=== PATIENT | female | born 1990 | race Caucasian/White ===

== ENCOUNTER 2016-04-14 17:01 | Emergency (ER) | payer MEDICAID ==
[2016-04-14] MEDS ORDERED: IBUPROFEN 600 MG TABLET PO STA (18:31)
[2016-04-14] MEDS ORDERED: HYDROcod/ACETAM 5/325 MG TABLET PO STA (18:31)
[2016-04-14] MEDS ORDERED: HYDROcod/ACETAM 5/325 MG TABLET ONE (18:35)
[2016-04-14] MEDS ORDERED: IBUPROFEN 600 MG TABLET PO ONE (18:35)
[2016-04-14] MEDS ORDERED: HYDROcod/ACET 5/325 Prepack 6 PO ONE ×2 (20:09→20:15)
== END 2016-04-14 20:26 | disposition home or self-care (01) ==
DX: R10.32 Left lower quadrant pain (principal); N83.202 Unspecified ovarian cyst, left side; F17.200 Nicotine dependence, unspecified, uncomplicated
CPT/HCPCS: 76830; 76856; 81003; 81025; 93976; 99283; 99284; A9270

== ENCOUNTER 2016-08-25 11:13 | Emergency (ER) | payer MEDICAID ==
[2016-08-25 11:39] VITALS: BP 130/75
--- NOTE | 2016-08-25 12:34 | ED Physician Documentation ---
PD HPI UPPER EXT INJURY - Stated complaint Stated Complaint: HAND INJURY - Chief complaint Chief Complaint: General - History obtained from History obtained from: Patient, Family - History of Present Illness Location: Right, Finger (thumb) Type of injury: Crush (in a car door.) Where injury occurred: Home Timing - onset: Today Timing - duration: Hours Timing - details: Abrupt onset, Still present Improved by: Rest, Immobilization Worsened by: Moving, Palpating Associated symptoms: Swelling. No: Weakness, Numbness, Tingling Contributing factors: No: Anticoagulated Similar symptoms before: Has not had sx before Recently seen: Not recently seen - Additonal information Additional information: 26 y/o female closed her thumb in the car door and has swelling pain and discoloration. 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 HEENT: Myringotomy (tubes) - Present Medications Home Medications: Ambulatory Orders Medication Instructions Recorded Confirmed HYDROcod/ACETAM 5/325 [[place] 5/325] 1 - 2 ea PO Q6H PRN #15 tablet 08/25/16 - Allergies Allergies/Adverse Reactions: Allergies Allergy/AdvReac Type Severity Reaction Status Date / Time amoxicillin trihydrate * Allergy unknown Verified 08/25/16 11:23 [From Augmentin] cefaclor [From Ceclor] Allergy unknown Verified 08/25/16 11:23 cefixime [From Suprax] Allergy Rash Verified 08/25/16 11:23 latex Allergy Itching Verified 08/25/16 11:23 morphine Allergy Hives Verified 08/25/16 11:23 naproxen sodium * Allergy Rash Verified 08/25/16 11:23 [From Aleve] Penicillins Allergy unknown Verified 08/25/16 11:23 potassium clavulanate * Allergy unknown Verified 08/25/16 11:23 [From Augmentin] - Social History Does the pt smoke?: Yes Smoking Status: Current every day smoker Does the pt drink ETOH?: Yes Does the pt have substance abuse?: Yes Substance Use and Type: Marijuana - Immunizations Immunizations are current?: Yes - POLST Patient has POLST: No PD ED PE NORMAL - Vitals Vital signs reviewed: Yes (normal ) - General General: Well developed/nourished, Other (appears to be in pain with hand cloth folder tone and flat affect. ) - HEENT HEENT: Atraumatic, PERRL, EOMI - Neck Neck: Supple, no meningeal sign - Respiratory Respiratory: No respiratory distress - Back Back: No CVA TTP - Derm Derm: Normal color, Warm and dry, No rash - Extremities Extremities: Other (over the right thumb is a proximal subungal hematoma. The DIP joint movement is with pain and distal n/v is intact. ) - Neuro Neuro: No motor deficit, No sensory deficit - Psych Psych: Normal mood, Normal affect Results - Vitals Vitals: Vital Signs - 24 hr 08/25/16 11:21 Temperature 36.2 C L Heart Rate 61 Respiratory 16 Rate Blood Pressure 130/75 O2 Saturation 100 Oxygen O2 Source Room air - Rads (name of study) thumb R Radiology: Prelim report reviewed (impression: No fracture), EMP read indepedently, See rad report PD MEDICAL DECISION MAKING - ED course Complexity details: reviewed results, re-evaluated patient, considered differential, d/w patient, d/w family ED course: 26 y/o female with a subungal hematoma without fracture appears to be in pain. Departure - Departure Disposition: 01 Home, Self Care Clinical Impression: Subungual hematoma of right thumb Qualifiers: Encounter type: initial encounter Qualified Code(s): S60.111A - Contusion of right thumb with damage to nail, initial encounter Condition: Stable Instructions: ED Hematoma Subungual Follow-Up: Lilli Matias ARNP [Primary Care Provider] - Prescriptions: HYDROcod/ACETAM 5/325 [[place] 5/325] 1 - 2 ea PO Q6H PRN #15 tablet PRN Reason: Pain
--- NOTE | 2016-08-25 12:35 | XRAY Preliminary Report ---
Exam: XR Finger(s) RT IMPRESSION: No fracture. [facility] SITE ID: [id number]
--- NOTE | 2016-08-25 12:37 | XRAY Report ---
EXAM: RIGHT FIRST DIGIT RADIOGRAPHY EXAM DATE: 08/25/2016 12:05 PM. CLINICAL HISTORY: Car door vs thumb. Pain. COMPARISON: None. TECHNIQUE: 3 views. FINDINGS: Bones: Normal. No fracture or bone lesion. Joints: Normal. No subluxations. Soft Tissues: Normal. No soft tissue swelling. IMPRESSION: No fracture. [facility] Referring Provider Line: [phone] SITE ID: [id number]
== END 2016-08-25 12:40 | disposition home or self-care (01) ==
LOC: ED 11:13
DX: S60.111A Contusion of right thumb with damage to nail, initial encounter (principal); W23.1XXA Caught, crushed, jammed, or pinched between stationary objects, initial encounter; J45.909 Unspecified asthma, uncomplicated; F17.200 Nicotine dependence, unspecified, uncomplicated
CPT/HCPCS: 73140; 99283

== ENCOUNTER 2016-10-11 21:30 | Emergency (ER) | payer MEDICAID ==
[2016-10-11 21:46] VITALS: BP 129/77
[2016-10-11] MEDS ORDERED: diphenhydrAMINE 25 MG CAPSULE PO STA (22:14)
[2016-10-11] MEDS ORDERED: CLINDAMYCIN 150 MG CAPSULE PO STA (22:14)
[2016-10-11] MEDS ORDERED: predniSONE 20 MG TABLET PO STA (22:14)
--- NOTE | 2016-10-11 22:19 | ED Physician Documentation ---
History of Present Illness - Stated complaint Stated Complaint: R ANKLE PAIN - Chief complaint Chief Complaint: General - History obtained from History obtained from: Patient - History of Present Illness Timing: Other (Bee sting on the right ankle while working at home about 48 hours ago with increasing redness and swelling there but no fevers.) Review of Systems Constitutional: denies: Fever, Chills Respiratory: denies: Dyspnea, Cough : denies: Now EGA PD PAST MEDICAL HISTORY - Past Medical History Past Medical History: Yes Respiratory: Asthma, Pneumonia - Past Surgical History Past Surgical History: Yes 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, 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 HEENT: Myringotomy (tubes) - Present Medications Home Medications: Ambulatory Orders Medication Instructions Recorded Confirmed HYDROcod/ACETAM 5/325 [[place] 5/325] 1 - 2 ea PO Q6H PRN #15 tablet 08/25/16 Clindamycin [Cleocin] 300 mg PO Q6H 5 Days 10/11/16 predniSONE [Deltasone] 60 mg PO DAILY 5 Days 10/11/16 - Allergies Allergies/Adverse Reactions: Allergies Allergy/AdvReac Type Severity Reaction Status Date / Time amoxicillin trihydrate * Allergy unknown Verified 10/11/16 21:46 [From Augmentin] cefaclor [From Ceclor] Allergy unknown Verified 10/11/16 21:46 cefixime [From Suprax] Allergy Rash Verified 10/11/16 21:46 latex Allergy Itching Verified 10/11/16 21:46 morphine Allergy Hives Verified 10/11/16 21:46 Penicillins Allergy unknown Verified 10/11/16 21:46 potassium clavulanate * Allergy unknown Verified 10/11/16 21:46 [From Augmentin] - Social History Does the pt smoke?: Yes Smoking Status: Current every day smoker Does the pt drink ETOH?: Yes Does the pt have substance abuse?: Yes Substance Use and Type: Marijuana - Immunizations Immunizations are current?: Yes - POLST Patient has POLST: No PD ED PE NORMAL - Vitals Vital signs reviewed: Yes - General General: Alert and oriented X 3, No acute distress - Extremities Extremities: Other (There is an area of cellulitis versus bee sting measuring about 3-4 cm around on the anterior right ankle that is warm) - Neuro Neuro: Alert and oriented X 3, Normal speech - Psych Psych: Normal mood, Normal affect Results - Vitals Vitals: Vital Signs - 24 hr 10/11/16 21:41 Temperature 36.5 C Heart Rate 77 Respiratory 17 Rate Blood Pressure 129/77 O2 Saturation 99 Oxygen O2 Source Room air PD MEDICAL DECISION MAKING - ED course ED course: Could be simple bee sting reaction with histamine release etc., also could be infection. Departure - Departure Disposition: 01 Home, Self Care Clinical Impression: Sting, bee Qualifiers: Encounter type: initial encounter Injury intent: accidental or unintentional Qualified Code(s): T63.441A - Toxic effect of venom of bees, accidental ( unintentional), initial encounter Condition: Good Record reviewed to determine appropriate education?: Yes Instructions: ED Sting Bite Insect Infec Prescriptions: Clindamycin [Cleocin] 300 mg PO Q6H 5 Days predniSONE [Deltasone] 60 mg PO DAILY 5 Days Comments: Call your doctor to arrange a follow-up appointment, make the next available appointment. In the interim, return anytime if worse or if new symptoms develop.
[2016-10-11] MEDS ORDERED: predniSONE 20 MG TABLET ONE (22:26)
[2016-10-11] MEDS ORDERED: diphenhydrAMINE 25 MG CAPSULE PO ONE (22:26)
[2016-10-11] MEDS ORDERED: CLINDAMYCIN 150 MG CAPSULE PO ONE (22:26)
== END 2016-10-11 22:33 | disposition home or self-care (01) ==
LOC: ED 21:30
DX: T63.441A Toxic effect of venom of bees, accidental (unintentional), initial encounter (principal); Y92.009 Unspecified place in unspecified non-institutional (private) residence as the place of occurrence of the external cause; F17.200 Nicotine dependence, unspecified, uncomplicated
CPT/HCPCS: 99283; A9270; J7512

== ENCOUNTER 2016-11-06 20:41 | Emergency (ER) | payer MEDICAID ==
[2016-11-06] MEDS ORDERED: IPRATROPIUM/ALBUTEROL 3 ML NEB INH STA (21:05)
[2016-11-06] MEDS ORDERED: IPRATROPIUM/ALBUTEROL 3 ML NEB INH ONE ×2 (21:21→21:52)
--- NOTE | 2016-11-06 22:19 | XRAY Preliminary Report ---
Exam: XR Chest 2 View PA/LAT IMPRESSION: 1. No acute abnormality seen in the chest. [facility] SITE ID: [id number]
--- NOTE | 2016-11-06 22:22 | XRAY Report ---
EXAM: CHEST RADIOGRAPHY EXAM DATE: 11/06/2016 09:57 PM. CLINICAL HISTORY: Productive cough and shortness of breath. COMPARISON: 03/12/2008. TECHNIQUE: 2 views. FINDINGS: Lungs/Pleura: No focal opacities evident. No pleural effusion. No pneumothorax. Normal volumes. Mediastinum: Heart and mediastinal contours are unremarkable. Other: None. IMPRESSION: 1. No acute abnormality seen in the chest. [facility] Referring Provider Line: [phone] SITE ID: [id number]
--- NOTE | 2016-11-06 23:01 | ED Physician Documentation ---
PD HPI URI - Stated complaint Stated Complaint: DIFF BREATHING,CHEST PRESSURE - Chief complaint Chief Complaint: Resp - History obtained from History obtained from: Patient, Friend - History of Present Illness Timing - onset: How many days ago (2) Timing details: Gradual onset, Still present Associated symptoms: Dry cough, Productive cough. No: Fever, Chills, Sore throat Contributing factors: No: Sick contact Improves by: Rest Similar symptoms before: No diagnosis Recently seen: Not recently seen - Additional information Additional information: Patient is a 26 year old female with a history of asthma who is presenting to the emergency department for cough and shortness of breath. Patient states that the symptoms have been going on for the last few days. patient states that sometimes the cough is dry and other times the cough is productive. patient states that she has a history of asthma but her medications have all . Review of Systems Constitutional: denies: Fever Eyes: denies: Decreased vision, Photophobia Ears: denies: Ear pain, Drainage/discharge Nose: reports: Rhinorrhea / runny nose, Congestion, Sinus pressure / pain Throat: denies: Sore throat Cardiac: denies: Chest pain / pressure, Calf pain Respiratory: reports: Cough. 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 HEENT: Myringotomy (tubes) - Present Medications Home Medications: Ambulatory Orders Medication Instructions Recorded Confirmed HYDROcod/ACETAM 5/325 [[place] 5/325] 1 - 2 ea PO Q6H PRN #15 tablet 08/25/16 Clindamycin [Cleocin] 300 mg PO Q6H 5 Days 10/11/16 predniSONE [Deltasone] 60 mg PO DAILY 5 Days 10/11/16 Albuterol Sulfate [Proventil Hfa 1 - 2 puffs INH Q4H PRN #1 inhaler 11/06/16 Inhaler] Benzonatate [Tessalon Perle] 100 mg PO TID #20 capsule 11/06/16 - Allergies Allergies/Adverse Reactions: Allergies Allergy/AdvReac Type Severity Reaction Status Date / Time amoxicillin trihydrate * Allergy unknown Verified 10/11/16 21:46 [From Augmentin] cefaclor [From Ceclor] Allergy unknown Verified 10/11/16 21:46 cefixime [From Suprax] Allergy Rash Verified 10/11/16 21:46 latex Allergy Itching Verified 10/11/16 21:46 morphine Allergy Hives Verified 10/11/16 21:46 Penicillins Allergy unknown Verified 10/11/16 21:46 potassium clavulanate * Allergy unknown Verified 10/11/16 21:46 [From Augmentin] - Social History Does the pt smoke?: Yes Smoking Status: Current every day smoker Does the pt drink ETOH?: Yes Does the pt have substance abuse?: Yes - Immunizations Immunizations are current?: Yes - POLST Patient has POLST: No PD ED PE NORMAL - Vitals Vital signs reviewed: Yes - General General: Alert and oriented X 3, No acute distress - HEENT HEENT: Atraumatic, PERRL, Ears normal, Moist mucous membranes, Pharynx benign, Dentition benign - Neck Neck: Supple, no meningeal sign, No JVD - Cardiac Cardiac: RRR, No murmur - Respiratory Respiratory: No respiratory distress - Abdomen Abdomen: Soft, Non tender, Non distended - Derm Derm: Normal color, Warm and dry, No rash - Extremities Extremities: No deformity, No edema - Neuro Neuro: Alert and oriented X 3, No motor deficit, No sensory deficit, Normal speech - Psych Psych: Normal mood PD ED PE EXPANDED - HEENT HEENT: Nasal congestion, Rhinorrhea, Pharynx normal Results - Vitals Vitals: Vital Signs - 24 hr 11/06/16 11/06/16 11/06/16 20:48 21:15 23:14 Temperature 36.2 C L Heart Rate 93 90 86 Respiratory 19 18 Rate Blood Pressure 116/81 H 117/73 O2 Saturation 98 99 Oxygen O2 Source Room air - Rads (name of study) chest x-ray Radiology: Final report received (no acute disease process) PD MEDICAL DECISION MAKING - ED course Complexity details: reviewed old records, reviewed results, re-evaluated patient , considered differential, d/w patient, d/w family ED course: Patient was seen and examined at bedside. breathing treatments were ordered as well as imaging. patient responded well to the nebulizer treatment. When patient returned from imaging the results were reviewed. there was no acute infection appreciated. Patient's symptoms were likely viral in nature. Patient required no further work up and was stable for discharge with outpatient follow up. Departure - Departure Disposition: 01 Home, Self Care Clinical Impression: Upper respiratory tract infection Condition: Good Instructions: ED Viral Syndrome Follow-Up: Lilli Matias ARNP [Primary Care Provider] - Within 1 week Prescriptions: Albuterol Sulfate [Proventil Hfa Inhaler] 1 - 2 puffs INH Q4H PRN #1 inhaler PRN Reason: Shortness Of Air/Wheezing Benzonatate [Tessalon Perle] 100 mg PO TID #20 capsule Comments: Your diagnostics were within normal limits. your symptoms are likely viral in nature. You should take the tessalon perles and over the counter cold and flu medicine. You should make sure you get plenty of rest and drink plenty of fluids. You should follow up with your pmd if your symptoms if your symptoms persist. Discharge Date/Time: 11/06/16 23:14
[2016-11-06 23:15] VITALS: BP 117/73
== END 2016-11-06 23:14 | disposition home or self-care (01) ==
LOC: ED 20:41
DX: J06.9 Acute upper respiratory infection, unspecified (principal); F17.200 Nicotine dependence, unspecified, uncomplicated
CPT/HCPCS: 71020; 94640; 99283; J7620

== ENCOUNTER 2016-11-10 16:59 | Outpatient (CLI) | payer MEDICAID ==
--- NOTE | 2016-11-11 08:45 | Ultrasound Report ---
PELVIC ULTRASOUND: 11/10/2016 CLINICAL INDICATION: History of ovarian cyst. COMPARISON: 04/14/2016 TECHNIQUE: Transabdominal pelvic ultrasound performed for global evaluation. Transvaginal pelvic ultrasound performed for detailed evaluation. Real-time scanning performed and static images obtained. FINDINGS: The uterus is anteverted, measuring 9.6 x 5.0 x 4.0 cm. The endometrial echo complex measures 6 mm. The ovaries are now normal, with the right measuring 3.0 x 1.7 x 1.6 cm and the left measuring 3.2 x 2.0 x 1.3 cm. Trace free fluid is present. IMPRESSION: RESOLUTION OF PREVIOUSLY SEEN LEFT OVARIAN CYST. JOB #: [id number] EXT JOB #: [id number] GUY
== END 2016-11-10 17:00 | disposition home or self-care (01) ==
LOC: DI 16:59
PROVIDERS: ATTEND Nurse Practitioner Gerontology
DX: Z87.42 Personal history of other diseases of the female genital tract (principal)
CPT/HCPCS: 76830; 76856

== ENCOUNTER 2016-12-01 10:39 | Emergency (ER) | payer MEDICAID ==
[2016-12-01] MEDS ORDERED: DEXAMETHASONE 10 MG/ML VIAL PO STA (11:48)
--- NOTE | 2016-12-01 11:50 | ED Physician Documentation ---
PD HPI HEENT - Stated complaint Stated Complaint: SORE THROAT/CONGESTION - Chief complaint Chief Complaint: Heent - History obtained from History obtained from: Patient - History of Present Illness Timing - onset: How many weeks ago (1) Timing - duration: Weeks (1) Timing - details: Gradual onset, Still present, Waxing and waning Location: Sinuses, Nose, Throat Improves: Medication Associated symptoms: Congestion, Rhinorrhea, Cough, Other (wheezing) Similar symptoms before: Diagnosis (OM) Recently seen: Not recently seen - Additional information Additional information: 26-year-old female with a history of asthma and prior otitis media has developed a cough and congestion and this is been present over the past week. She has had a fever on and off she has had her in symptoms come and go and today she has sore throat as well as fever cough congestion and wheezing. 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 HEENT: Myringotomy (tubes) - Present Medications Home Medications: Ambulatory Orders Medication Instructions Recorded Confirmed Azithromycin [Zithromax] 250 mg PO DAILY #6 tablet 12/01/16 - Allergies Allergies/Adverse Reactions: Allergies Allergy/AdvReac Type Severity Reaction Status Date / Time amoxicillin trihydrate * Allergy unknown Verified 10/11/16 21:46 [From Augmentin] cefaclor [From Ceclor] Allergy unknown Verified 10/11/16 21:46 cefixime [From Suprax] Allergy Rash Verified 10/11/16 21:46 latex Allergy Itching Verified 10/11/16 21:46 morphine Allergy Hives Verified 10/11/16 21:46 Penicillins Allergy unknown Verified 10/11/16 21:46 potassium clavulanate * Allergy unknown Verified 10/11/16 21:46 [From Augmentin] - Social History Does the pt smoke?: Yes Smoking Status: Current every day smoker Does the pt drink ETOH?: Yes Does the pt have substance abuse?: Yes - Immunizations Immunizations are current?: Yes - POLST Patient has POLST: No PD ED PE NORMAL - Vitals Vital signs reviewed: Yes (normal ) - General General: No acute distress, Well developed/nourished - HEENT HEENT: Atraumatic, PERRL, EOMI, Pharynx benign, Other (both TM's are inflammed with indistinct landmarks the left worse than the right. ) - Neck Neck: Supple, no meningeal sign, No bony TTP - Cardiac Cardiac: RRR, No murmur - Respiratory Respiratory: No respiratory distress, Other (Diminished breath sounds with scattered wheezes bilaterally.) - Abdomen Abdomen: Soft, Non tender - Back Back: No CVA TTP, No spinal TTP - Derm Derm: Normal color, Warm and dry, No rash - Extremities Extremities: No deformity, No edema - Neuro Neuro: No motor deficit, No sensory deficit, Normal speech - Psych Psych: Normal mood, Normal affect Results - Vitals Vitals: Vital Signs - 24 hr 12/01/16 10:48 Temperature 36.2 C L Heart Rate 82 Respiratory 18 Rate Blood Pressure 115/78 O2 Saturation 97 Oxygen O2 Source Room air PD MEDICAL DECISION MAKING - ED course Complexity details: considered differential, d/w patient ED course: 26-year-old female with history ofOtitis has developed otitis and she has an exacerbation of her asthma as well. She is given a dose of dexamethasone here in the emergency department and we will put her on her on a Z-Yadiel. Departure - Departure Disposition: 01 Home, Self Care Clinical Impression: Otitis media Qualifiers: Otitis media type: suppurative Chronicity: acute Laterality: bilateral Recurrence: not specified as recurrent Spontaneous tympanic membrane rupture: without spontaneous rupture Qualified Code(s): H66.003 - Acute suppurative otitis media without spontaneous rupture of ear drum, bilateral Condition: Stable Instructions: ED Otitis Media Acute Adult Follow-Up: Lilli Matias [employer]EL [employer]INE I [employer]IPE [employer] [Primary Care Provider] - Prescriptions: Azithromycin [Zithromax] 250 mg PO DAILY #6 tablet
[2016-12-01] MEDS ORDERED: DEXAMETHASONE 10 MG/ML VIAL ONE (11:54)
[2016-12-01] MEDS ORDERED: CHERRY SYRUP 10 ML UDC PO ONE (11:54)
[2016-12-01 11:55] VITALS: BP 124/77
== END 2016-12-01 11:54 | disposition home or self-care (01) ==
LOC: ED 10:39
DX: H66.003 Acute suppurative otitis media without spontaneous rupture of ear drum, bilateral (principal); J45.909 Unspecified asthma, uncomplicated; F17.200 Nicotine dependence, unspecified, uncomplicated
CPT/HCPCS: 99283; A9270

== ENCOUNTER 2017-03-18 13:12 | Outpatient (CLI) | payer MEDICAID ==
--- NOTE | 2017-03-18 15:21 | MRI Report ---
EXAM: MRI THORACIC SPINE WITHOUT CONTRAST EXAM DATE: 03/18/2017 02:16 PM. CLINICAL HISTORY: Chronic back pain. Mid thoracic and lower back pain. Arthritis. COMPARISONS: Chest radiography 11/06/2016. TECHNIQUE: Multiplanar, multisequence T1-weighted and fluid-sensitive sequences of the thoracic spine from C7 to L1 without contrast. Other: None. FINDINGS: Spinal Cord: No signal abnormality in the visualized spinal cord. Alignment: Normal alignment. No spondylolisthesis. Bone Marrow: No gross fractures or bone lesion. No bone marrow edema. Disk Levels/Facets: C7-T1: Unremarkable. T1-T2: Unremarkable. T2-T3: Unremarkable. T3-T4: Unremarkable. T4-T5: Unremarkable. T5-T6: Unremarkable. T6-T7: Tiny right paracentral disk protrusion. No significant stenosis. T7-T8: Unremarkable. T8-T9: Unremarkable. T9-T10: Unremarkable. T10-T11: Unremarkable. T11-T12: Unremarkable. T12-L1: Unremarkable. Musculature: Normal. No edema or fatty atrophy. Other: The visualized lungs, mediastinum, and abdominal cavity are unremarkable. IMPRESSION: 1. Tiny disk protrusion at the T6-T7 level without significant associated stenosis. 2. Otherwise normal thoracic spine MRI. [facility] Referring Provider Line: [phone] SITE ID: [id number]
--- NOTE | 2017-03-18 15:24 | MRI Report ---
EXAM: MRI LUMBAR SPINE WITHOUT CONTRAST EXAM DATE: 03/18/2017 02:21 PM. CLINICAL HISTORY: CHRONIC LOW BACK PAIN. COMPARISON: Radiograph 03/02/2007. TECHNIQUE: Multiplanar, multisequence T1-weighted and fluid-sensitive sequences of the lumbar spine f rom T12 to S1 without contrast. Other: None. FINDINGS: Spinal Cord: The conus terminates at L2. The conus medullaris and cauda equina are unremarkable. Alignment: No scoliosis or spondylolisthesis. Bone Marrow: Five [id number] lumbar vertebral bodies are assumed. No gross fractures or bone les ions. No bone marrow edema. Disk Levels/Facets: T12-L1: Unremarkable. L1-L2: Unremarkable. L2-L3: Unremarkable. L3-L4: Unremarkable. L4-L5: Unremarkable. L5-S1: Unremarkable. Musculature: Normal. No edema or fatty atrophy. Other: The partially visualized retroperitoneum is unremarkable. IMPRESSION: Unremarkable lumbar spine MRI. Comment: The following findings are so common in adults without low back pain that while we report th eir presence, they must be interpreted with caution and in the context of the clinical situation. (Re paulo Thomas et al, Spine 2001) Prevalence of findings in patients without low back pain: Disk degeneration (any evidence): 92% Disk desiccation/T2 signal loss: 83% Disk height loss: 56% Disk bulge: 64% Disk protrusion: 32% Annular tear/high intensity zone: 38% [facility] Referring Provider Line: [phone] SITE ID: [id number]
== END 2017-03-18 13:13 | disposition home or self-care (01) ==
LOC: DI 13:12
PROVIDERS: ATTEND Nurse Practitioner Gerontology
DX: M54.5 Low back pain (principal); M54.6 Pain in thoracic spine; G89.29 Other chronic pain; I13.0 Hypertensive heart and chronic kidney disease with heart failure and stage 1 through stage 4 chronic kidney disease, or unspecified chronic kidney disease; E11.22 Type 2 diabetes mellitus with diabetic chronic kidney disease; N18.9 Chronic kidney disease, unspecified; I50.9 Heart failure, unspecified; C90.00 Multiple myeloma not having achieved remission
CPT/HCPCS: 72146; 72148

== ENCOUNTER 2017-04-04 11:04 | Outpatient (CLI) | payer MEDICAID ==
[2017-04-04 19:37] LABS: EOSINOPHILS % (AUTO) 1.4 %; HGB - HEMOGLOBIN 14.6 g/dL (12.0-16.0); LYMPHOCYTES % (AUTO) 19.2 %; MEAN CORPUSCULAR HEMOGLOBIN 30.5 pg (27.0-31.0); MEAN CORPUSCULAR HGB CONC 32.2 g/dL (32.0-36.0); MEAN CORPUSCULAR VOLUME 94.7 fL (81.0-99.0); MEAN PLATELET VOLUME 9.4 fL (7.9-10.8); MONOCYTES % (AUTO) 5.8 %; NEUTROPHILS % (AUTO) 73.6 %; PLT - PLATELET COUNT 218 10^3/uL (130-450); RED CELL DISTRIBUTION WIDTH 14.3 % (12.0-15.0); WHITE BLOOD COUNT 9.2 x10^3/uL (4.8-10.8)
[2017-04-04 19:45] LABS: ABNORMAL LYMPHS % (MANUAL) 0 %
[2017-04-04 19:50] LABS: ALBUMIN 4.3 g/dL (3.2-5.5); ALBUMIN/GLOBULIN RATIO 1.8 (1.0-2.2); ALKALINE PHOSPHATASE 46 IU/L (42-121); ALT ALANINE AMINOTRANSFERASE 21 IU/L (10-60); AST ASPARTATE AMINOTRANSFERASE 21 IU/L (10-42); BILIRUBIN,TOTAL 0.5 mg/dL (0.2-1.0); BUN - BLOOD UREA NITROGEN 17 mg/dL (6-20); CALCIUM 9.1 mg/dL (8.5-10.3); CARBON DIOXIDE - CO2 24 mmol/L (21-32); CHLORIDE 105 mmol/L (101-111); CREATININE 0.8 mg/dL (0.4-1.0); GFR - MDRD 86 (>89); GLUCOSE 92 mg/dL (70-100); SODIUM 137 mmol/L (135-145); TOTAL PROTEIN 6.7 g/dL (6.7-8.2)
[2017-04-04 19:57] LABS: BAND NEUTROPHILS % (MANUAL) 2 %; LYMPHOCYTES # (MANUAL) 1.3 10^3/uL (1.5-3.5); LYMPHOCYTES % (MANUAL) 14 %; MONOCYTES # (MANUAL) 0.3 10^3/uL (0.0-1.0); NEUTROPHILS # (MANUAL) 7.6 10^3/uL (1.5-6.6); NEUTROPHILS % (MANUAL) 81 %; PLATELET ESTIMATE, MANUAL NORMAL (130-450,000) (NORMAL); PLATELET MORPHOLOGY NORMAL APPEARANCE (NORMAL); RBC MORPHOLOGY (MULTIPLE) NORMAL APPEARANCE (NORMAL)
[2017-04-04 19:58] LABS: DIFFERENTIAL COMMENT MANUAL DIFFERENTIAL
[2017-04-04 20:00] LABS: CRP - C-REACTIVE PROTEIN < 1.0 mg/dL (0-1.0); RHEUMATOID FACTOR NEGATIVE (Negative)
== END 2017-04-04 11:05 | disposition home or self-care (01) ==
LOC: LAB.N 11:04
PROVIDERS: ATTEND Nurse Practitioner Gerontology
DX: Z13.9 Encounter for screening, unspecified (principal); G89.29 Other chronic pain
CPT/HCPCS: 36415; 80053; 84443; 84550; 85025; 85651; 86038; 86140; 86430

== ENCOUNTER 2017-04-09 21:11 | Emergency (ER) | payer MEDICAID ==
[2017-04-09] MEDS ORDERED: IPRATROPIUM/ALBUTEROL 3 ML NEB INH STA (21:19)
--- NOTE | 2017-04-09 21:20 | ED Physician Documentation ---
PD HPI DYSPNEA - Stated complaint Stated Complaint: COUGH - Chief complaint Chief Complaint: Resp - History obtained from History obtained from: Patient - History of Present Illness Timing - onset: Other (26-year-old woman with history of tobacco abuse and asthma had has a cough for 3 weeks which is getting better and then got worse again about 3 days ago with shortness of breath but no fevers.) Review of Systems Constitutional: denies: Fever, Chills Nose: reports: Rhinorrhea / runny nose, Congestion Throat: denies: Sore throat Cardiac: denies: Chest pain / pressure Respiratory: reports: Dyspnea, Cough PD PAST MEDICAL HISTORY - Past Medical History Respiratory: Asthma, Pneumonia - Past Surgical History Past Surgical History: Yes 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, 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 HEENT: Myringotomy (tubes) - Present Medications Home Medications: Ambulatory Orders Medication Instructions Recorded Confirmed Albuterol Sulfate [Proventil Hfa 1 - 2 puffs IH Q4H PRN #1 04/09/17 Inhaler] [email or web address].ad Ipratropium/Albuterol [Duoneb] 3 ml INH Q6H PRN #1 unit 04/09/17 Nebulizer and Compressor [Home 1 each MC ONCE #1 each 04/09/17 Nebulizer Plus Sidestream] guaiFENesin/CODEINE [Robitussin AC] 5 - 10 ml PO Q6H PRN #120 ml 04/09/17 predniSONE [Deltasone] 20 mg PO [id number] #21 tab 04/09/17 - Allergies Allergies/Adverse Reactions: Allergies Allergy/AdvReac Type Severity Reaction Status Date / Time amoxicillin trihydrate * Allergy unknown Verified 04/09/17 21:17 [From Augmentin] cefaclor [From Ceclor] Allergy unknown Verified 04/09/17 21:17 cefixime [From Suprax] Allergy Rash Verified 04/09/17 21:17 latex Allergy Itching Verified 04/09/17 21:17 morphine Allergy Hives Verified 04/09/17 21:17 Penicillins Allergy unknown Verified 04/09/17 21:17 potassium clavulanate * Allergy unknown Verified 04/09/17 21:17 [From Augmentin] - Social History Does the pt smoke?: Yes Smoking Status: Current every day smoker Does the pt drink ETOH?: Yes Does the pt have substance abuse?: Yes - Immunizations Immunizations are current?: Yes - POLST Patient has POLST: No PD ED PE NORMAL - Vitals Vital signs reviewed: Yes - General General: Alert and oriented X 3, No acute distress - HEENT HEENT: Pharynx benign - Cardiac Cardiac: RRR, No murmur - Respiratory Respiratory: Other (Diffusely wheezy with moderate air motion) - Abdomen Abdomen: Non tender - Neuro Neuro: Alert and oriented X 3, Normal speech Results - Vitals Vitals: Vital Signs - 24 hr 04/09/17 04/09/17 21:15 21:45 Temperature 36.5 C Heart Rate 94 95 Respiratory 20 18 Rate Blood Pressure 149/90 H O2 Saturation 98 Oxygen O2 Source Room air - Rads (name of study) 2v chest Radiology: EMP read contemporaneously (NAD) Departure - Departure Disposition: 01 Home, Self Care Clinical Impression: Viral URI with cough Asthma Qualifiers: Asthma severity: moderate Asthma persistence: persistent Asthma complication type: with acute exacerbation Qualified Code(s): J45.41 - Moderate persistent asthma with (acute) exacerbation Condition: Good Record reviewed to determine appropriate education?: Yes Instructions: ALBUTEROL Oral Inhaler, ED Reactive Airway Disease Prescriptions: Albuterol Sulfate [Proventil Hfa Inhaler] 1 - 2 puffs IH Q4H PRN #1 hfa.aer.ad PRN Reason: Cough guaiFENesin/CODEINE [Robitussin AC] 5 - 10 ml PO Q6H PRN #120 ml PRN Reason: Cough Ipratropium/Albuterol [Duoneb] 3 ml INH Q6H PRN #1 unit PRN Reason: Wheezing Nebulizer and Compressor [Home Nebulizer Plus Sidestream] 1 each MC ONCE #1 each predniSONE [Deltasone] 20 mg PO [id number] #21 tab Comments: Return if worse, see your doctor in 1 week if not better.
--- NOTE | 2017-04-09 21:55 | XRAY Preliminary Report ---
Exam: XR CHEST 2 VIEW X-RAY IMPRESSION: Normal 2-view chest radiography. [facility] SITE ID: [id number]
--- NOTE | 2017-04-09 21:56 | XRAY Report ---
EXAM: CHEST RADIOGRAPHY EXAM DATE: 04/09/2017 09:44 PM. CLINICAL HISTORY: Cough. COMPARISON: Chest 11-06-16. TECHNIQUE: 2 views. FINDINGS: Lungs/Pleura: No focal opacities evident. No pleural effusion. No pneumothorax. Normal volumes. Mediastinum: Heart and mediastinal contours are unremarkable. Other: None. IMPRESSION: Normal 2-view chest radiography. [facility] Referring Provider Line: [phone] SITE ID: [id number]
[2017-04-09] MEDS ORDERED: predniSONE 20 MG TABLET PO STA (22:09)
[2017-04-09] MEDS ORDERED: guaiFENesin/CODEINE 5 ML UDC PO STA (22:10)
[2017-04-09 22:21] VITALS: BP 130/68
== END 2017-04-09 22:26 | disposition home or self-care (01) ==
LOC: ED 21:11
DX: J06.9 Acute upper respiratory infection, unspecified (principal); B97.89 Other viral agents as the cause of diseases classified elsewhere; J45.41 Moderate persistent asthma with (acute) exacerbation; F17.200 Nicotine dependence, unspecified, uncomplicated
CPT/HCPCS: 71046; 94640; 94664; 99283; A9270; J7512; J7620

== ENCOUNTER 2018-01-11 20:48 | Emergency (ER) | payer MEDICAID ==
[2018-01-11] MEDS ORDERED: SODIUM CHLORIDE 0.9% 1,000 ML IV ONE (21:02)
[2018-01-11 21:14] LABS: BASOPHILS % (AUTO) 0.4 %; EOSINOPHILS # (AUTO) 0.1 10^3/uL (0.0-0.7); EOSINOPHILS % (AUTO) 0.7 %; HGB - HEMOGLOBIN 14.3 g/dL (12.0-16.0); LYMPHOCYTES # (AUTO) 2.8 10^3/uL (1.5-3.5); LYMPHOCYTES % (AUTO) 37.4 %; MEAN CORPUSCULAR HEMOGLOBIN 30.5 pg (27.0-31.0); MEAN CORPUSCULAR HGB CONC 34.4 g/dL (32.0-36.0); MEAN CORPUSCULAR VOLUME 88.7 fL (81.0-99.0); MEAN PLATELET VOLUME 8.5 fL (7.9-10.8); MONOCYTES # (AUTO) 0.5 10^3/uL (0.0-1.0); MONOCYTES % (AUTO) 6.9 %; NEUTROPHILS % (AUTO) 54.6 %; PLT - PLATELET COUNT 209 10^3/uL (130-450); RED BLOOD COUNT 4.69 10^6/uL (4.20-5.40); RED CELL DISTRIBUTION WIDTH 13.1 % (12.0-15.0); WHITE BLOOD COUNT 7.4 x10^3/uL (4.8-10.8)
[2018-01-11] MEDS ORDERED: METOCLOPRAMIDE 10 MG/2 ML VIAL IVP STA (21:14)
[2018-01-11 21:36] LABS: ALBUMIN 4.3 g/dL (3.2-5.5); ALBUMIN/GLOBULIN RATIO 1.7 (1.0-2.2); ALKALINE PHOSPHATASE 46 IU/L (42-121); ALT ALANINE AMINOTRANSFERASE 16 IU/L (10-60); AST ASPARTATE AMINOTRANSFERASE 20 IU/L (10-42); BILIRUBIN,TOTAL 0.9 mg/dL (0.2-1.0); BUN - BLOOD UREA NITROGEN 14 mg/dL (6-20); CALCIUM 9.4 mg/dL (8.5-10.3); CARBON DIOXIDE - CO2 28 mmol/L (21-32); CHLORIDE 101 mmol/L (101-111); CREATININE 0.9 mg/dL (0.4-1.0); GFR - MDRD 75 (>89); GLUCOSE 93 mg/dL (70-100); LIPASE 35 U/L (22-51); SODIUM 137 mmol/L (135-145); TOTAL PROTEIN 6.9 g/dL (6.7-8.2)
[2018-01-11 21:39] LABS: HCG,QUALITATIVE BLOOD NEGATIVE
[2018-01-11] MEDS ORDERED: IOPAMIDOL-300 100 ML VIAL ONE (21:50)
[2018-01-11] MEDS ORDERED: IOVERSOL 320 50 ML VIAL ONE (21:52)
[2018-01-11 22:18] LABS: BILIRUBIN,URINE NEGATIVE (NEGATIVE); GLUCOSE, URINE (UA) NEGATIVE (NEGATIVE); KETONES,URINE (UA) NEGATIVE (NEGATIVE); LEUKOCYTE ESTERASE, URINE TRACE (NEGATIVE); NITRITE,URINE NEGATIVE (NEGATIVE); OCCULT BLOOD,URINE NEGATIVE (NEGATIVE); PH,URINE 6.5 PH (5.0-7.5); PROTEIN,URINE NEGATIVE (NEGATIVE); UROBILINOGEN,URINE 0.2 (NORMAL) E.U./dL (NORMAL)
[2018-01-11] MEDS ORDERED: KETOROLAC 15 MG/ML VIAL IVP STA (22:24)
[2018-01-11 22:27] LABS: CLARITY,URINE CLEAR (CLEAR)
[2018-01-11 22:28] LABS: BACTERIA,URINE Rare /HPF (None Seen); RBC,URINE None Seen /HPF (0-5); SQUAMOUS EPITHELIAL CELL,UR MANY Squamous (<= Few)
[2018-01-11] MEDS ORDERED: IOVERSOL 320 50 ML VIAL PO ONE (23:44)
[2018-01-11] MEDS ORDERED: IOPAMIDOL-300 100 ML VIAL IVP ONE (23:44)
--- NOTE | 2018-01-12 00:02 | CT Report ---
Reason: upper abdominal pain Procedure Date: 01/11/2018 Accession Number: [id number] / [id number] Procedure: CT - Abdomen/Pelvis W/ CPT Code: FULL RESULT: EXAM: CT ABDOMEN AND PELVIS EXAM DATE: 01/11/2018 11:42 PM. CLINICAL HISTORY: Upper abdominal pain. COMPARISONS: None. TECHNIQUE: Routine helical CT imaging was performed through the abdomen and pelvis. IV contrast: 100 mL Isovue 300. Enteric contrast: Yes. Reconstructions: Coronal and sagittal. In accordance with CT protocol optimization, one or more of the following dose reduction techniques were utilized for this exam: automated exposure control, adjustment of mA and/or KV based on patient size, or use of iterative reconstructive technique. FINDINGS: Lung Bases: Unremarkable. Liver: Normal. No masses. Gallbladder/Bile Ducts: The gallbladder has been removed. There is no bile duct dilatation. Spleen: Normal. Pancreas: Normal. Adrenal Glands: Normal. Kidneys: There are numerous bilateral renal stones measuring up to 7 mm on the right and 5 mm on the left. No obstructing calculi seen. Peritoneal Cavity/Bowel: There is an above average volume of stool throughout the colon. No small bowel obstruction. No free air or fluid collections. No evidence of appendicitis. Pelvic Organs: Normal. The bladder and visualized pelvic organs are within normal limits. Vasculature: No aneurysms or other significant abnormality. Bones: No significant abnormality. Other: None. IMPRESSION: 1. Nonobstructing bilateral renal stones. 2. Status post cholecystectomy. 3. No bowel obstruction, fluid collection or acute inflammatory process. 4. Above average stool volume throughout the colon suggesting constipation. [facility]
--- NOTE | 2018-01-12 00:16 | ED Physician Documentation ---
PD HPI ABD PAIN - Stated complaint Stated Complaint: ABD PX/BLOATING - Chief complaint Chief Complaint: Abd Pain - Additional information Additional information: 27-year-old female presents the emergency department with increasing abdominal p ain over the past several days. The patient reports epigastric discomfort which she describes as a sharp stabbing pain which has progressively worsened. The patient reports no bowel movement and nausea. The patient is concerned about a small bowel obstruction. Symptoms are described as moderate. No triggering factors. No relieving factors. 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 HEENT: Myringotomy (tubes) - Present Medications Home Medications: Ambulatory Orders Medication Instructions Recorded Confirmed Albuterol Sulfate [Proventil Hfa 1 - 2 puffs IH Q4H PRN #1 04/09/17 Inhaler] hfa.aer.ad Ipratropium/Albuterol [Duoneb] 3 ml INH Q6H PRN #1 unit 04/09/17 Nebulizer and Compressor [Home 1 each MC ONCE #1 each 04/09/17 Nebulizer Plus Sidestream] guaiFENesin/CODEINE [Robitussin AC] 5 - 10 ml PO Q6H PRN #120 ml 04/09/17 predniSONE [Deltasone] 20 mg PO [id number] #21 tab 04/09/17 - Allergies Allergies/Adverse Reactions: Allergies Allergy/AdvReac Type Severity Reaction Status Date / Time amoxicillin trihydrate * Allergy unknown Verified 01/11/18 20:57 [From Augmentin] cefaclor [From Ceclor] Allergy unknown Verified 01/11/18 20:57 cefixime [From Suprax] Allergy Rash Verified 01/11/18 20:57 latex Allergy Itching Verified 01/11/18 20:57 morphine Allergy Hives Verified 01/11/18 20:57 Penicillins Allergy unknown Verified 01/11/18 20:57 potassium clavulanate * Allergy unknown Verified 01/11/18 20:57 [From Augmentin] - Social History Does the pt smoke?: Yes Smoking Status: Current every day smoker Does the pt drink ETOH?: Yes ETOH Use: Wine Does the pt have substance abuse?: No Substance Use and Type: Marijuana - Immunizations Immunizations are current?: Yes - POLST Patient has POLST: No PD ED PE NORMAL - General General: Alert and oriented X 3, No acute distress - HEENT HEENT: Atraumatic, PERRL, EOMI, Ears normal - Neck Neck: Supple, no meningeal sign - Cardiac Cardiac: RRR - Respiratory Respiratory: No respiratory distress, Clear bilaterally - Abdomen Abdomen: Soft, Non distended. No: Non tender (Upper abdomen tenderness to palpation, no rebound or peritoneal signs) - Derm Derm: Normal color - Extremities Extremities: No deformity, Normal ROM s pain, No edema - Neuro Neuro: Alert and oriented X 3, Normal speech - Psych Psych: Normal mood Results - Vitals Vitals: Vital Signs - 24 hr 01/11/18 01/11/18 01/11/18 20:52 22:15 23:08 Temperature 36.1 C L Heart Rate 73 71 63 Respiratory 16 16 16 Rate Blood Pressure 130/88 H 118/67 105/76 O2 Saturation 100 100 99 01/12/18 01/12/18 00:15 00:28 Temperature Heart Rate 68 51 L Respiratory 16 16 Rate Blood Pressure 106/67 113/67 O2 Saturation 100 98 Oxygen O2 Source Room air - Labs Labs: Laboratory Tests 01/11/18 01/11/18 01/11/18 21:11 21:11 22:15 WBC 7.4 RBC 4.69 Hgb 14.3 Hct 41.6 MCV 88.7 MCH 30.5 MCHC 34.4 RDW 13.1 Plt Count 209 MPV 8.5 Neut # (Auto) 4.0 Lymph # (Auto) 2.8 [place] # (Auto) 0.5 Eos # (Auto) 0.1 Baso # (Auto) 0.0 Absolute Nucleated RBC 0.00 Nucleated RBC % 0.0 Sodium 137 Potassium 3.6 Chloride 101 Carbon Dioxide 28 Anion Gap 8.0 BUN 14 Creatinine 0.9 Estimated GFR (MDRD) 75 L Glucose 93 Calcium 9.4 Total Bilirubin 0.9 AST 20 ALT 16 Alkaline Phosphatase 46 Total Protein 6.9 Albumin 4.3 Globulin 2.6 Albumin/Globulin Ratio 1.7 Lipase 35 Serum HCG, Qual NEGATIVE Urine Color YELLOW Urine Clarity CLEAR Urine pH 6.5 Ur Specific [place] 1.010 Urine Protein NEGATIVE Urine Glucose (UA) NEGATIVE Urine Ketones NEGATIVE Urine Occult Blood NEGATIVE Urine Nitrite NEGATIVE Urine Bilirubin NEGATIVE Urine Urobilinogen 0.2 (NORMAL) Ur Leukocyte Esterase TRACE H Urine RBC None Seen Urine WBC 6-10 H Ur Squamous Epith Cells MANY Squamous H Urine Bacteria Rare Ur Microscopic Review INDICATED Urine Culture Comments NOT INDICATED - Rads (name of study) CT abd/pelvis Radiology: Final report received (1. Nonobstructing bilateral renal stones. 2. Status post cholecystectomy. 3. No bowel obstruction, fluid collection or acute inflammatory process. 4. Above average stool volume throughout the colon suggesting constipation), See rad report PD MEDICAL DECISION MAKING - ED course ED course: On reevaluation the patient is resting comfortably and appears to be in no significant distress. The patient feels much improved. I discussed with her the findings on her workup and she understands and agrees. The patient will take her normal bowel regimen at home to help relieve the constipation. I discussed warning signs and recommended returning to the emergency department immediately for any worsening or any concerns. Departure - Departure Disposition: 01 Home, Self Care Clinical Impression: Renal calculus, bilateral Abdominal pain Qualifiers: Abdominal location: generalized Qualified Code(s): R10.84 - Generalized abdominal pain Condition: Good Instructions: Abdominal Pain Follow-Up: Sim Godinez MD [Primary Care Provider] - Within 1 week (If your symptoms are not improving, please ask your primary about a referral to GI to further assess your abdominal pain) Comments: Please return to the emergency department for worsening symptoms or any concerns. Discharge Date/Time: 01/12/18 00:29
[2018-01-12 00:30] VITALS: BP 113/67
== END 2018-01-12 00:29 | disposition home or self-care (01) ==
LOC: ED 20:48
DX: N20.0 Calculus of kidney (principal); R10.84 Generalized abdominal pain; F17.200 Nicotine dependence, unspecified, uncomplicated
CPT/HCPCS: 36415; 74177; 80053; 81001; 83690; 84703; 85025; 96361; 96374; 99283; 99284; J2765; Q9967; 81003; 87086

== ENCOUNTER 2020-05-08 14:50 | Emergency (ER) | payer MEDICAID ==
--- NOTE | 2020-05-08 15:27 | ED Physician Documentation ---
History of Present Illness - Stated complaint Stated Complaint: F - Chief complaint Chief Complaint: General - History obtained from History obtained from: Patient - History of Present Illness Timing: Today Pain level max: 1 Pain level now: 0 - Additonal information Additional information: Patient is a 29-year-old female who presents to the emergency department concerned about potential STD exposure. She states she was at a alliance party 2 days ago and thinks she may have "blacked out". She thinks she may have had sex, but she is unsure. States has mild dysuria. She would like to be screened for STDs. She does not want a SANE examination. Review of Systems Ten Systems: 10 systems reviewed and negative Constitutional: denies: Fever, Chills Respiratory: denies: Cough GI: denies: Vomiting, Diarrhea : reports: Dysuria. 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 HEENT: Myringotomy (tubes) - Present Medications Home Medications: Ambulatory Orders Medication Instructions Recorded Confirmed Albuterol Sulfate [Proventil Hfa 1 - 2 puffs IH Q4H PRN #1 04/09/17 05/08/20 Inhaler] hfa.aer.ad metroNIDAZOLE [Flagyl] 500 mg PO BID #14 tablet 05/08/20 - Allergies Allergies/Adverse Reactions: Allergies Allergy/AdvReac Type Severity Reaction Status Date / Time amoxicillin trihydrate * Allergy unknown Verified 05/08/20 15:08 [From Augmentin] cefaclor [From Ceclor] Allergy unknown Verified 05/08/20 15:08 cefixime [From Suprax] Allergy Rash Verified 05/08/20 15:08 latex Allergy Itching Verified 05/08/20 15:08 morphine Allergy Hives Verified 05/08/20 15:08 Penicillins Allergy unknown Verified 05/08/20 15:08 potassium clavulanate * Allergy unknown Verified 05/08/20 15:08 [From Augmentin] - Social History Does the pt smoke?: Yes Smoking Status: Current every day smoker Does the pt drink ETOH?: Yes Does the pt have substance abuse?: No - Immunizations Immunizations are current?: Yes - POLST Patient has POLST: No PD ED PE NORMAL - Vitals Vital signs reviewed: Yes - General General: Alert and oriented X 3, No acute distress - HEENT HEENT: Moist mucous membranes - Neck Neck: Supple, no meningeal sign - Cardiac Cardiac: RRR, Strong equal pulses - Respiratory Respiratory: No respiratory distress, Clear bilaterally - Abdomen Abdomen: Soft, Non tender, Non distended - Derm Derm: Warm and dry - Neuro Neuro: Alert and oriented X 3 - Psych Psych: Normal mood, Normal affect Results - Vitals Vitals: Vital Signs - 24 hr 05/08/20 05/08/20 15:03 16:10 Temperature 37.0 C Heart Rate 106 H 84 Respiratory 12 16 Rate Blood Pressure 132/77 H 136/85 H O2 Saturation 100 Oxygen O2 Source Room air - Labs Labs: Laboratory Tests 05/08/20 05/08/20 15:38 15:38 Urine Color YELLOW Urine Clarity CLEAR Urine pH 6.0 Ur Specific [place] 1.025 Urine Protein NEGATIVE Urine Glucose (UA) NEGATIVE Urine Ketones NEGATIVE Urine Occult Blood NEGATIVE Urine Nitrite NEGATIVE Urine Bilirubin NEGATIVE Urine Urobilinogen 1 (NORMAL) Ur Leukocyte Esterase NEGATIVE Ur Microscopic Review NOT INDICATED Urine Culture Comments NOT INDICATED Urine HCG, Qual NEGATIVE C. glabrata (PCR) NEGATIVE C. krusei (PCR) NEGATIVE Mervat species DNA NEGATIVE T. vaginalis (PCR) NEGATIVE Bact Vaginosis (PCR) POSITIVE A PD MEDICAL DECISION MAKING - ED course Complexity details: reviewed results, re-evaluated patient, considered differential, d/w patient ED course: Patient declines a pelvic examination here. Her urinalysis does not show any acute abnormalities. We will call her with the results of her bacterial vaginitis study as well as her gonorrhea and chlamydia study if they are positive. Patient also informed that we do not test for all STDs and she should have HIV testing especially with her doctor. Patient counseled regarding signs and symptoms for which I believe and urgent re-evaluation would be necessary. Patient with good understanding of and agreement to plan and is comfortable going home at this time This document was made in part using voice recognition software. While efforts are made to proofread this document, sound alike and grammatical errors may occur. Patient is positive for bacterial vaginitis. Message left for her to call back the emergency department. We will send a prescription for Flagyl into [facility] for her. Prescription was E prescribed at 1840 on 05/08/2020 Departure - Departure Disposition: 01 Home, Self Care Clinical Impression: Bacterial vaginitis Condition: Good Instructions: ED Dysuria Uncertain Cause Follow-Up: Sim Godinez MD [Primary Care Provider] - Within 1 week Prescriptions: metroNIDAZOLE [Flagyl] 500 mg PO BID #14 tablet Comments: Your urinalysis is normal today. The other swabs will return later tonight or tomorrow. You will receive a call if these are positive. Follow-up with your doctor for any further testing such as HIV testing. Discharge Date/Time: 05/08/20 16:14
[2020-05-08 15:52] LABS: BILIRUBIN,URINE NEGATIVE (NEGATIVE); GLUCOSE, URINE (UA) NEGATIVE (NEGATIVE); KETONES,URINE (UA) NEGATIVE (NEGATIVE); LEUKOCYTE ESTERASE, URINE NEGATIVE (NEGATIVE); NITRITE,URINE NEGATIVE (NEGATIVE); OCCULT BLOOD,URINE NEGATIVE (NEGATIVE); PROTEIN,URINE NEGATIVE (NEGATIVE); UROBILINOGEN,URINE 1 (NORMAL) E.U./dL (NORMAL)
[2020-05-08 15:53] LABS: CLARITY,URINE CLEAR (CLEAR)
[2020-05-08 15:54] LABS: HCG UR QUAL NEGATIVE
[2020-05-08 16:16] VITALS: BP 136/85
[2020-05-08 18:15] LABS: BACTERIAL VAGINOSIS DNA POSITIVE (NEGATIVE); CANDIDA GLABRATA DNA NEGATIVE (NEGATIVE); CANDIDA GROUP DNA NEGATIVE (NEGATIVE); CANDIDA KRUSEI DNA NEGATIVE (NEGATIVE); TRICHOMONAS VAGINALIS DNA NEGATIVE (NEGATIVE)
[2020-05-08 21:22] LABS: CHLAMYDIA TRACHOMATIS DNA NEGATIVE (NEGATIVE); NEISSERIA GONORRHOEAE DNA NEGATIVE (NEGATIVE); TRICHOMONAS VAGINALIS DNA NEGATIVE (NEGATIVE)
== END 2020-05-08 16:14 | disposition home or self-care (01) ==
LOC: ED 14:50
DX: N76.0 Acute vaginitis (principal); B96.89 Other specified bacterial agents as the cause of diseases classified elsewhere; Z20.2 Contact with and (suspected) exposure to infections with a predominantly sexual mode of transmission; F17.200 Nicotine dependence, unspecified, uncomplicated
CPT/HCPCS: 81001; 81003; 81025; 87086; 87491; 87591; 87661; 87801; 99283; 99284

== ENCOUNTER 2020-06-25 11:03 | Emergency (ER) | payer MEDICAID ==
--- OUTSIDE RECORDS SUMMARY | 2020-06-25 11:07 | EXTERNAL MEDICAL SUMMARY RPT | Continuity of Care Document ---
:1990 Demographics Phone Unavailable Preferred Language Tuvaluan Marital Status Unknown Sabianist Affiliation Unknown Race Unknown Ethnic Group Unknown Author Organization [facility] Address [address] [phone] Phone Care Team Providers Name Role Phone Aline Unavailable Unavailable Problems date description facility 20200331 [facility] Medications date description facility 20200331 Albuterol 1 MG/ML Inhalant Solution [facility] 20200331 Prednisone 20 MG Oral Tablet Located [facility] spital Procedures date description facility 20200331 [facility] Vital Signs date measurement value source 20200331 BP_diastolic 58 mm[Hg] 20200331 BP_systolic 103 mm[Hg] 20200331 heart_rate 93 /min 20200331 respiration_rate 18 /min 20200331 temperature_metric 36.94 C 20200331 temperature_standard 98.5 F 20200331 weight_metric 68.03 kg 20200331 weight_standard 149.98 lb Social History date description facility [id number]
--- OUTSIDE RECORDS SUMMARY | 2020-06-25 11:25 | EXTERNAL MEDICAL SUMMARY RPT | Continuity of Care Document ---
:1990 Demographics Phone Unavailable Preferred Language Italian Marital Status Unknown Sikhism Affiliation Unknown Race Unknown Ethnic Group Unknown Author Organization [facility] Address [address] [phone] Phone Care Team Providers Name Role Phone Aline Unavailable Unavailable Problems date description facility 20200331 [facility] Medications date description facility 20200331 Albuterol 1 MG/ML Inhalant Solution [facility] 20200331 Prednisone 20 MG Oral Tablet [facility] spital Procedures date description facility 20200331 [facility] Vital Signs date measurement value source 20200331 BP_diastolic 58 mm[Hg] 20200331 BP_systolic 103 mm[Hg] 20200331 heart_rate 93 /min 20200331 respiration_rate 18 /min 20200331 temperature_metric 36.94 C 20200331 temperature_standard 98.5 F 20200331 weight_metric 68.03 kg 20200331 weight_standard 149.98 lb Social History date description facility [id number]
[2020-06-25] MEDS ORDERED: DOXYCYCLINE 100 MG TABLET PO STA (12:50)
--- NOTE | 2020-06-25 12:50 | ED Physician Documentation ---
PD HPI SKIN - Stated complaint Stated Complaint: HEAD PX - Chief complaint Chief Complaint: Wound - History obtained from History obtained from: Patient - Additional information Additional information: Pt comes to the ED with CC of ingrown hair with draining wound at the base of her head. Pt states she gets these frequently, but that she feels that this one has not completely drained. She states the lesion is causing her pain. No fevers or chills. Review of Systems Ten Systems: 10 systems reviewed and negative Constitutional: reports: Reviewed and negative Eyes: reports: Reviewed and negative Ears: reports: Reviewed and negative Nose: reports: Reviewed and negative Throat: reports: Reviewed and negative Cardiac: reports: Reviewed and negative Respiratory: reports: Reviewed and negative GI: reports: Reviewed and negative : reports: Reviewed and negative Skin: reports: Lesions Musculoskeletal: reports: Reviewed and negative Neurologic: reports: Reviewed and negative Psychiatric: reports: Reviewed and negative Endocrine: reports: Reviewed and negative Immunocompromised: reports: Reviewed and negative PD PAST MEDICAL HISTORY - Past Medical History Respiratory: Asthma, Pneumonia - Past Surgical History Past Surgical History: Yes 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, 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 HEENT: Myringotomy (tubes) - Present Medications Home Medications: Ambulatory Orders Medication Instructions Recorded Confirmed Doxycycline Hyclate 150 mg PO BID #14 tablet 06/25/20 - Allergies Allergies/Adverse Reactions: Allergies Allergy/AdvReac Type Severity Reaction Status Date / Time amoxicillin trihydrate * Allergy unknown Verified 06/25/20 11:10 [From Augmentin] cefaclor [From Ceclor] Allergy unknown Verified 06/25/20 11:10 cefixime [From Suprax] Allergy Rash Verified 06/25/20 11:10 latex Allergy Itching Verified 06/25/20 11:10 morphine Allergy Hives Verified 06/25/20 11:10 Penicillins Allergy unknown Verified 06/25/20 11:10 potassium clavulanate * Allergy unknown Verified 06/25/20 11:10 [From Augmentin] - Social History Does the pt smoke?: Yes Smoking Status: Current every day smoker Does the pt drink ETOH?: Yes Does the pt have substance abuse?: No - Immunizations Immunizations are current?: Yes - POLST Patient has POLST: No PD ED PE NORMAL - Vitals Vital signs reviewed: Yes - General General: Alert and oriented X 3, No acute distress - HEENT HEENT: Atraumatic, PERRL, EOMI, Moist mucous membranes, Other (2cm draining abscess/cellulitis @ base of scalp posteriorly on R. Purulent material expressible from wound. ) - Neck Neck: Supple, no meningeal sign - Respiratory Respiratory: No respiratory distress - Derm Derm: Warm and dry, Other (Draining scalp lesion, as above.) - Extremities Extremities: No deformity - Neuro Neuro: Alert and oriented X 3 - Psych Psych: Normal mood, Normal affect Results - Vitals Vitals: Vital Signs - 24 hr 06/25/20 06/25/20 11:07 13:10 Temperature 36.4 C L Heart Rate 91 71 Respiratory 16 17 Rate Blood Pressure 129/83 H 126/85 H O2 Saturation 100 100 Oxygen O2 Source Room air PD MEDICAL DECISION MAKING - ED course Complexity details: considered differential, d/w patient ED course: All purulent material was expressed from the wound. Erythema did not extend far beyond the apex, and I did not feel further benefit would be derived from extending the opening. I have started the pt on abx. We have discussed wound care, follow-up, and the usual indications for return. Departure - Departure Disposition: 01 Home, Self Care Clinical Impression: Abscess Condition: Stable Instructions: ED Staph Infec Abx Tx Only Prescriptions: Doxycycline Hyclate 150 mg PO BID #14 tablet Discharge Date/Time: 06/25/20 13:20
[2020-06-25 13:16] VITALS: BP 126/85
== END 2020-06-25 13:20 | disposition home or self-care (01) ==
LOC: ED 11:03
DX: L02.811 Cutaneous abscess of head [any part, except face] (principal); L03.811 Cellulitis of head [any part, except face]; F17.200 Nicotine dependence, unspecified, uncomplicated
CPT/HCPCS: 99282; 99283; A9270

== ENCOUNTER 2020-07-27 07:09 | Outpatient (CLI) | payer MEDICAID | END 2020-07-27 07:10 | disposition EMS.NT | LOC: EMS 07:09 | DX: S20.319A Abrasion of unspecified front wall of thorax, initial encounter (principal); V47.5XXA Car driver injured in collision with fixed or stationary object in traffic accident, initial encounter; Y93.89 Activity, other specified; Y92.410 Unspecified street and highway as the place of occurrence of the external cause ==

== ENCOUNTER 2020-08-24 15:43 | Emergency (ER) | payer MEDICAID ==
[2020-08-24] MEDS ORDERED: CLINDAMYCIN 150 MG CAPSULE PO STA (17:34)
--- NOTE | 2020-08-24 17:37 | ED Physician Documentation ---
PD HPI SKIN - Stated complaint Stated Complaint: BACK PX/SWELLING - Chief complaint Chief Complaint: Wound - History obtained from History obtained from: Patient - History of Present Illness Timing - onset: How many days ago (3) Timing - duration: Days (3) Timing - details: Gradual onset Pain level max: 5 Pain level now: 5 Location: Back Quality / character: Painful, Raised, Swelling, Draining (states drained yellow fluid earlier) Associated symptoms: No: Fever, Headache, Facial swelling, Dyspnea, Abd pain Contributing factors: No: Exposed to medication, Exposed to food, Exposed to soap / lotion, Exposed to Poison snehal/oak, Insect bite /sting, Recent illness Recently seen: Not recently seen - Additional information Additional information: Patient is a 30-year-old female who presents to the emergency department stating she has swelling and redness to her upper mid back. She states that it started as a mosquito bite and she has been scratching it. She states that there was a small amount of yellow drainage earlier today. No fevers. No chills. Denies any IV drug use. Denies any possibility of . Nothing makes it better or worse. 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 HEENT: Myringotomy (tubes) - Present Medications Home Medications: Ambulatory Orders Medication Instructions Recorded Confirmed Doxycycline Hyclate 150 mg PO BID #14 tablet 06/25/20 clindamycin HCL [Cleocin HCl] 300 mg PO Q6H #40 cap 08/24/20 - Allergies Allergies/Adverse Reactions: Allergies Allergy/AdvReac Type Severity Reaction Status Date / Time amoxicillin trihydrate * Allergy unknown Verified 08/24/20 15:58 [From Augmentin] cefaclor [From Ceclor] Allergy unknown Verified 08/24/20 15:58 cefixime [From Suprax] Allergy Rash Verified 08/24/20 15:58 latex Allergy Itching Verified 08/24/20 15:58 morphine Allergy Hives Verified 08/24/20 15:58 Penicillins Allergy unknown Verified 08/24/20 15:58 potassium clavulanate * Allergy unknown Verified 08/24/20 15:58 [From Augmentin] - Social History Does the pt smoke?: Yes Smoking Status: Current every day smoker Does the pt drink ETOH?: Yes Does the pt have substance abuse?: No - Immunizations Immunizations are current?: Yes - POLST Patient has POLST: No PD ED PE NORMAL - Vitals Vital signs reviewed: Yes - General General: Alert and oriented X 3, No acute distress, Well developed/nourished - HEENT HEENT: PERRL, Moist mucous membranes - Neck Neck: Supple, no meningeal sign - Cardiac Cardiac: RRR, Strong equal pulses - Respiratory Respiratory: No respiratory distress, Clear bilaterally - Abdomen Abdomen: Soft, Non tender, Non distended - Back Back: No spinal TTP, Other (There is a 3 x 4 cm area of swelling to the upper back. No fluctuance. No spinal tenderness. Neurovascularly intact. Minimal erythema. Bedside ultrasound does not reveal any drainable abscess.) - Derm Derm: Warm and dry - Extremities Extremities: No deformity - Neuro Neuro: Alert and oriented X 3, No motor deficit, No sensory deficit, Other (Normal bilateral lower extremity patellar and ankle jerk reflexes. Normal great toe extension bilaterally. no saddle anesthesia) - Psych Psych: Normal mood, Normal affect Results - Vitals Vitals: Vital Signs - 24 hr 08/24/20 08/24/20 15:56 17:43 Temperature 36.4 C L Heart Rate 93 93 Respiratory 20 16 Rate Blood Pressure 110/72 111/65 O2 Saturation 99 100 Oxygen O2 Source Room air PD MEDICAL DECISION MAKING - ED course Complexity details: considered differential, d/w patient ED course: Patient with what appears to be cellulitis versus an early abscess of the upper back. There is no pocket of fluid to drain on ultrasound. We will trial her on antibiotics first and if she fails to improve in the next 24 to 48 hours, she will return for drainage. Patient will also utilize warm compresses at home. Patient counseled regarding signs and symptoms for which I believe and urgent re-evaluation would be necessary. Patient with good understanding of and agreement to plan and is comfortable going home at this time This document was made in part using voice recognition software. While efforts are made to proofread this document, sound alike and grammatical errors may occur. Departure - Departure Disposition: 01 Home, Self Care Clinical Impression: Abscess Cellulitis Qualifiers: Site of cellulitis: trunk Site of cellulitis of trunk: back Qualified Code(s): L03.312 - Cellulitis of back [any part except buttock] Condition: Good Instructions: ED Infec Skin Cellulitis Follow-Up: Sim Godinez MD [Primary Care Provider] - Within 1 week Prescriptions: clindamycin HCL [Cleocin HCl] 300 mg PO Q6H #40 cap Comments: Take all antibiotics until gone. Use warm compresses 2-3 times a day as well. Return if this is worsening or not improving in the next 24 to 48 hours. Discharge Date/Time: 08/24/20 17:43
[2020-08-24 17:44] VITALS: BP 111/65
== END 2020-08-24 17:43 | disposition home or self-care (01) ==
LOC: ED 15:43
DX: L03.312 Cellulitis of back [any part except buttock and flank] (principal); F17.200 Nicotine dependence, unspecified, uncomplicated
CPT/HCPCS: 99282; 99284; A9270

== ENCOUNTER 2020-10-06 15:22 | Emergency (ER) | payer MEDICAID ==
[2020-10-06 15:31] VITALS: BP 140/80
[2020-10-06 16:04] LABS: BILIRUBIN,URINE NEGATIVE (NEGATIVE); GLUCOSE, URINE (UA) NEGATIVE (NEGATIVE); KETONES,URINE (UA) NEGATIVE (NEGATIVE); LEUKOCYTE ESTERASE, URINE NEGATIVE (NEGATIVE); NITRITE,URINE NEGATIVE (NEGATIVE); OCCULT BLOOD,URINE NEGATIVE (NEGATIVE); PROTEIN,URINE NEGATIVE (NEGATIVE); UROBILINOGEN,URINE 0.2 (NORMAL) E.U./dL (NORMAL)
[2020-10-06 16:07] LABS: CLARITY,URINE CLEAR (CLEAR); HCG UR QUAL NEGATIVE
--- NOTE | 2020-10-06 16:57 | ED Physician Documentation ---
History of Present Illness - Stated complaint Stated Complaint: FEMALE - Chief complaint Chief Complaint: UTI - History obtained from History obtained from: Patient - Additonal information Additional information: 30-year-old woman was seen here a couple of weeks ago for skin infection. Placed on clindamycin. She lost the prescription. Now it is getting worse again. Mostly lesions on the scalp. She is also had 2 weeks of urinary urgency and frequency which subsequently went away but now has a foul vaginal odor. There is no discharge. She has no concern for STDs. No fevers. 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 HEENT: Myringotomy (tubes) - Present Medications Home Medications: Ambulatory Orders Medication Instructions Recorded Confirmed Doxycycline Hyclate 150 mg PO BID #14 tablet 06/25/20 clindamycin HCL [Cleocin HCl] 300 mg PO Q6H #40 cap 08/24/20 clindamycin HCL [Cleocin HCl] 300 mg PO QID #28 cap 10/06/20 metroNIDAZOLE [Flagyl] 500 mg PO BID #14 tablet 10/06/20 - Allergies Allergies/Adverse Reactions: Allergies Allergy/AdvReac Type Severity Reaction Status Date / Time amoxicillin trihydrate * Allergy unknown Verified 10/06/20 15:29 [From Augmentin] cefaclor [From Ceclor] Allergy unknown Verified 10/06/20 15:29 cefixime [From Suprax] Allergy Rash Verified 10/06/20 15:29 latex Allergy Itching Verified 10/06/20 15:29 morphine Allergy Hives Verified 10/06/20 15:29 Penicillins Allergy unknown Verified 10/06/20 15:29 potassium clavulanate * Allergy unknown Verified 10/06/20 15:29 [From Augmentin] - Social History Does the pt smoke?: Yes Smoking Status: Current every day smoker Does the pt drink ETOH?: Yes Does the pt have substance abuse?: No - Immunizations Immunizations are current?: Yes - POLST Patient has POLST: No PD ED PE NORMAL - Vitals Vital signs reviewed: Yes - General General: Alert and oriented X 3, No acute distress - HEENT HEENT: Other (She has some kind of picked at infected-looking lesions of the back of her head, no palpable abscess.) - Abdomen Abdomen: Non tender - Neuro Neuro: Alert and oriented X 3, Normal speech Results - Vitals Vitals: Vital Signs - 24 hr 10/06/20 15:29 Temperature 36.6 C Heart Rate 82 Respiratory 16 Rate Blood Pressure 140/80 H O2 Saturation 98 Oxygen O2 Source Room air - Labs Labs: Laboratory Tests 10/06/20 15:40 Urine Color YELLOW Urine Clarity CLEAR Urine pH 7.0 Ur Specific [place] 1.020 Urine Protein NEGATIVE Urine Glucose (UA) NEGATIVE Urine Ketones NEGATIVE Urine Occult Blood NEGATIVE Urine Nitrite NEGATIVE Urine Bilirubin NEGATIVE Urine Urobilinogen 0.2 (NORMAL) Ur Leukocyte Esterase NEGATIVE Ur Microscopic Review NOT INDICATED Urine Culture Comments NOT INDICATED Urine HCG, Qual NEGATIVE PD MEDICAL DECISION MAKING - ED course ED course: 30-year-old woman presents with skin infection of the back of her head, refill of clindamycin was given. No evidence of urinary tract infection and the urgency and frequency is gone. Offered to send her for swabs or do a pelvic exam, she preferred to trial some Flagyl Departure - Departure Disposition: 01 Home, Self Care Clinical Impression: Skin infection Condition: Good Record reviewed to determine appropriate education?: Yes Instructions: ED Staph Infec Abx Tx Only Prescriptions: clindamycin HCL [Cleocin HCl] 300 mg PO QID #28 cap metroNIDAZOLE [Flagyl] 500 mg PO BID #14 tablet Comments: Return if you worsen, follow-up with your primary care physician, next available appointment.
== END 2020-10-06 17:02 | disposition home or self-care (01) ==
LOC: ED 15:22
DX: L08.9 Local infection of the skin and subcutaneous tissue, unspecified (principal); N89.8 Other specified noninflammatory disorders of vagina; F17.200 Nicotine dependence, unspecified, uncomplicated
CPT/HCPCS: 81001; 81003; 81025; 87086; 99283

== ENCOUNTER 2020-10-26 08:48 | Emergency (ER) | payer MEDICAID ==
[2020-10-26 09:03] VITALS: BP 116/66
--- NOTE | 2020-10-26 10:03 | ED Physician Documentation ---
PD HPI FEMALE - Stated complaint Stated Complaint: FEMALE - Chief complaint Chief Complaint: Abd Pain - History obtained from History obtained from: Patient - History of Present Illness Timing - onset: How many days ago (22) Timing - duration: Days Timing - details: Gradual onset, Still present Associated symptoms: Back pain, Dysuria, Urinary frequency Contributing factors: No: Similar symptoms before: Diagnosis (UTI and peylonephritis) Recently seen: Emergency Dept - Additional information Additional information: 30-year-old female who is recently been seen in the emergency department for a scalp infection has been placed on some clindamycin. She also took a course of Flagyl. She presents today with symptoms of urinary tract infection with urinary urgency frequency and dysuria and feels that there is some swelling around her urethra. She does not suspect STD. She has some pain in her back and is concerned about the caught possibility of kidney infection and she has not had nausea or vomiting. Review of Systems Constitutional: denies: Fever Eyes: denies: Decreased vision Ears: denies: Ear pain Nose: denies: Congestion Throat: denies: Sore throat Cardiac: denies: Chest pain / pressure Respiratory: denies: Dyspnea, Cough GI: denies: Abdominal Pain, Nausea, Vomiting, Constipation, Diarrhea : reports: Dysuria, Frequency Skin: denies: Rash Musculoskeletal: reports: Back pain. 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 HEENT: Myringotomy (tubes) - Present Medications Home Medications: Ambulatory Orders Medication Instructions Recorded Confirmed Doxycycline Hyclate 150 mg PO BID #14 tablet 06/25/20 clindamycin HCL [Cleocin HCl] 300 mg PO Q6H #40 cap 08/24/20 clindamycin HCL [Cleocin HCl] 300 mg PO QID #28 cap 10/06/20 metroNIDAZOLE [Flagyl] 500 mg PO BID #14 tablet 10/06/20 Sulfamethox/Trimeth 800/160 1 each PO BID #14 tablet 10/26/20 [Bactrim Ds] - Allergies Allergies/Adverse Reactions: Allergies Allergy/AdvReac Type Severity Reaction Status Date / Time amoxicillin trihydrate * Allergy unknown Verified 10/26/20 09:03 [From Augmentin] cefaclor [From Ceclor] Allergy unknown Verified 10/26/20 09:03 cefixime [From Suprax] Allergy Rash Verified 10/26/20 09:03 latex Allergy Itching Verified 10/26/20 09:03 morphine Allergy Hives Verified 10/26/20 09:03 Penicillins Allergy unknown Verified 10/26/20 09:03 potassium clavulanate * Allergy unknown Verified 10/26/20 09:03 [From Augmentin] - Social History Does the pt smoke?: Yes Smoking Status: Current every day smoker Does the pt drink ETOH?: Yes Does the pt have substance abuse?: No - Immunizations Immunizations are current?: Yes - POLST Patient has POLST: No PD ED PE NORMAL - Vitals Vital signs reviewed: Yes ( normal ) - General General: Alert and oriented X 3, No acute distress, Well developed/nourished - HEENT HEENT: Atraumatic, PERRL, EOMI - Neck Neck: Supple, no meningeal sign, No bony TTP - Cardiac Cardiac: RRR, No murmur - Respiratory Respiratory: No respiratory distress, Clear bilaterally - Abdomen Abdomen: Normal bowel sounds, Soft, Non tender, Non distended, No organomegaly - Back Back: Other (There is bilateral flank tenderness mostly to the paraspinous muscles and not to bimanual palpation of either kidney.) - Derm Derm: Normal color, Warm and dry, No rash - Extremities Extremities: No deformity, No edema - Neuro Neuro: Alert and oriented X 3, inventory coordinator 2-12 intact, No motor deficit, No sensory deficit, Normal speech Eye Opening: Spontaneous Motor: Obeys Commands Verbal: Oriented GCS Score: 15 - Psych Psych: Normal mood, Normal affect Results - Vitals Vitals: Vital Signs - 24 hr 10/26/20 08:57 Temperature 36.9 C Heart Rate 93 Respiratory 16 Rate Blood Pressure 116/66 O2 Saturation 98 Oxygen O2 Source Room air - Labs Labs: Laboratory Tests 10/26/20 10/26/20 10/26/20 09:20 09:50 09:50 WBC 9.3 RBC 4.89 Hgb 14.7 Hct 45.4 MCV 92.8 MCH 30.1 MCHC 32.4 RDW 12.6 Plt Count 241 MPV 9.7 Neut # (Auto) 7.4 H Lymph # (Auto) 1.3 L [place] # (Auto) 0.5 Eos # (Auto) 0.1 Baso # (Auto) 0.0 Absolute Nucleated RBC 0.00 Nucleated RBC % 0.0 Sodium 139 Potassium 4.1 Chloride 106 Carbon Dioxide 27 Anion Gap 6.0 BUN 13 Creatinine 0.7 Estimated GFR (MDRD) 98 Glucose 139 H Calcium 9.3 Total Bilirubin 0.7 AST 19 ALT 22 Alkaline Phosphatase 57 Total Protein 6.9 Albumin 4.2 Globulin 2.7 Albumin/Globulin Ratio 1.6 Lipase 28 Urine Color YELLOW Urine Clarity SL. CLOUDY Urine pH 7.0 Ur Specific [place] 1.020 Urine Protein 100 H Urine Glucose (UA) NEGATIVE Urine Ketones NEGATIVE Urine Occult Blood LARGE H Urine Nitrite POSITIVE H Urine Bilirubin NEGATIVE Urine Urobilinogen 1 (NORMAL) Ur Leukocyte Esterase SMALL H Urine RBC 0-5 Urine WBC >25 H Urine WBC Clumps PRESENT Ur Squamous Epith Cells RARE Squamous Urine Bacteria Few Ur Microscopic Review INDICATED Urine Culture Comments INDICATED Procedures - Bedside sono Bedside sono by EMP: With use of bedside ultrasound both kidneys are imaged there is no evidence of hydronephrosis and the kidneys are sonographically nontender. She is sonographically tender to the paraspinous muscles. PD MEDICAL DECISION MAKING - ED course Complexity details: reviewed results, re-evaluated patient, considered differential, d/w patient ED course: 30-year-old female with a 2-day history of urinary urgency frequency and dysuria has some flank pain and on sonographic examination this does not appear to be related to her kidneys. She is not nauseous. Urinalysis is performed and demonstrates evidence of UTI. We will treat with septra as she is allergic to multiple beta-lactams. Departure - Departure Disposition: 01 Home, Self Care Clinical Impression: Urinary tract infectious disease Condition: Stable Instructions: ED UTI Cystitis Female Follow-Up: Sim Godinez MD [Primary Care Provider] - Prescriptions: Sulfamethox/Trimeth 800/160 [Bactrim Ds] 1 each PO BID #14 tablet
[2020-10-26 10:07] LABS: BILIRUBIN,URINE NEGATIVE (NEGATIVE); GLUCOSE, URINE (UA) NEGATIVE (NEGATIVE); KETONES,URINE (UA) NEGATIVE (NEGATIVE); LEUKOCYTE ESTERASE, URINE SMALL (NEGATIVE); NITRITE,URINE POSITIVE (NEGATIVE); OCCULT BLOOD,URINE LARGE (NEGATIVE); PROTEIN,URINE 100 mg/dL (NEGATIVE); UROBILINOGEN,URINE 1 (NORMAL) E.U./dL (NORMAL)
[2020-10-26 10:08] LABS: CLARITY,URINE SL. CLOUDY (CLEAR)
[2020-10-26 10:12] LABS: BASOPHILS % (AUTO) 0.2 %; EOSINOPHILS # (AUTO) 0.1 10^3/uL (0.0-0.7); EOSINOPHILS % (AUTO) 0.8 %; HCT - HEMATOCRIT 45.4 % (37.0-47.0); HGB - HEMOGLOBIN 14.7 g/dL (12.0-16.0); LYMPHOCYTES # (AUTO) 1.3 10^3/uL (1.5-3.5); LYMPHOCYTES % (AUTO) 13.6 %; MEAN CORPUSCULAR HEMOGLOBIN 30.1 pg (27.0-31.0); MEAN CORPUSCULAR HGB CONC 32.4 g/dL (32.0-36.0); MEAN CORPUSCULAR VOLUME 92.8 fL (81.0-99.0); MEAN PLATELET VOLUME 9.7 fL (7.9-10.8); MONOCYTES # (AUTO) 0.5 10^3/uL (0.0-1.0); MONOCYTES % (AUTO) 5.7 %; NEUTROPHILS # (AUTO) 7.4 10^3/uL (1.5-6.6); NEUTROPHILS % (AUTO) 79.4 %; PLT - PLATELET COUNT 241 10^3/uL (130-450); RED BLOOD COUNT 4.89 10^6/uL (4.20-5.40); RED CELL DISTRIBUTION WIDTH 12.6 % (12.0-15.0); WHITE BLOOD COUNT 9.3 x10^3/uL (4.8-10.8)
[2020-10-26 10:16] LABS: ALBUMIN 4.2 g/dL (3.2-5.5); ALBUMIN/GLOBULIN RATIO 1.6 (1.0-2.2); BILIRUBIN,TOTAL 0.7 mg/dL (0.2-1.0); CALCIUM 9.3 mg/dL (8.5-10.3); CREATININE 0.7 mg/dL (0.4-1.0); POTASSIUM 4.1 mmol/L (3.5-5.0); TOTAL PROTEIN 6.9 g/dL (6.7-8.2)
[2020-10-26 10:17] LABS: BACTERIA,URINE Few /HPF (None Seen); RBC,URINE 0-5 /HPF (0-5); SQUAMOUS EPITHELIAL CELL,UR RARE Squamous (<= Few); WBC CLUMPS,URINE PRESENT; WBC,URINE >25 /HPF (0-5)
[2020-10-26 10:55] LABS: HCG UR QUAL NEGATIVE
== END 2020-10-26 11:04 | disposition home or self-care (01) ==
LOC: ED 08:48
DX: N39.0 Urinary tract infection, site not specified (principal); F17.200 Nicotine dependence, unspecified, uncomplicated
CPT/HCPCS: 36415; 80053; 81001; 81003; 81025; 83690; 85025; 87086; 87181; 99283; 99284